=== PATIENT | female | born 1955 | race Caucasian/White ===

== ENCOUNTER 2017-04-05 15:17 | Outpatient (CLI) | payer BC, OTHER ==
[2015-10-22 22:02] VITALS: BP 118/58
--- NOTE | 2017-04-05 16:42 | Diagnostic Imaging Report ---
[facility] [address] [facility].[address] [id number] Report Submission Date: April 05, 2017 4:00:12 PM CDT Patient Study Name: RUDY WALSH Date: April 05, 2017 3:33:48 PM CDT Modality Type: CR Gender: F Description: CHEST : 51 Institution: [facility] Physician: DAVIE JUAN JOSE - OP 2 views of the chest History: COUGH. DIFFICULTY BREATHING No comparison studies Cardiac size upper limits of normal. Aorta is tortuous. Prominent pulmonary hilum. There is minimal basilar atelectasis. No pleural effusion or pneumothorax. No focal consolidation Impression: Cardiomegaly. Bibasilar atelectasis. Electronically signed on April 05, 2017 4:00:12 PM CDT by: Jazmin SAINI
== END 2017-04-05 15:18 ==
LOC: RAD 15:17
PROVIDERS: ATTEND Family Medicine
DX: I49.9 Cardiac arrhythmia, unspecified (principal); R06.09 Other forms of dyspnea; R00.2 Palpitations
CPT/HCPCS: 36415; 71020; 84484; 93225